=== PATIENT | male | born 2000 | race Caucasian/White ===

== ENCOUNTER 2018-11-01 22:05 | Emergency (ER) | payer OTHER ==
[~2018-11-01] VITALS: Ht 185.4 cm; Wt 65.8 kg
[2018-11-01] MEDS ORDERED: HYDROCODON-ACE1 EAC8 PO (23:07)
[2018-11-01] MEDS ORDERED: KEFLEX500 M1 PO (23:07)
[2018-11-01 23:20] VITALS: BP 116/63
== END 2018-11-01 23:20 | disposition home or self-care (01) ==
LOC: M.ERS 22:05
DX: S02.2XXA Fracture of nasal bones, initial encounter for closed fracture (principal); S02.40DA Maxillary fracture, left side, initial encounter for closed fracture; F17.200 Nicotine dependence, unspecified, uncomplicated; Y04.0XXA Assault by unarmed brawl or fight, initial encounter; Y93.89 Activity, other specified; Y92.89 Other specified places as the place of occurrence of the external cause; Y99.8 Other external cause status